=== PATIENT | male | born 1975 | race Caucasian/White ===

== ENCOUNTER → 2017-11-22 | Outpatient (CLI) | payer OTHER ==
[~2017-11-22] MED LIST: FOLI1 PO; METTREX2.5 PO; Remicade100 MG IV; Sudogest30 MG PO
== END ==
LOC: LAB SHORT 11:14 → PLD 11:14
DX: D48.5 Neoplasm of uncertain behavior of skin (principal)
CPT/HCPCS: 88305

== ENCOUNTER → 2020-09-23 | Outpatient (CLI) | payer OTHER | END | disposition home or self-care (01) | LOC: PLD 11:00 → LAB SHORT 11:00 | DX: D23.72 Other benign neoplasm of skin of left lower limb, including hip (principal) | CPT/HCPCS: 88305 ==

== ENCOUNTER → 2023-08-26 | Outpatient (CLI) | payer OTHER | LOC: LAB SHORT 13:54 → LAB 13:54 | DX: R22.32 Localized swelling, mass and lump, left upper limb (principal) | CPT/HCPCS: 88305; 88312 ==